=== PATIENT | female | born 1975 ===

== ENCOUNTER 2017-08-25 07:45 | Emergency (ER) | payer MEDICAID, OTHER ==
[2017-08-25 07:48] VITALS: BMI 29.0
[2017-08-25 07:50] VITALS: O2SAT 98
--- NOTE | 2017-08-25 09:46 | RAD ---
HISTORY: R breast pain COMPARISON: No prior. TECHNIQUE: Chest PA and lateral FINDINGS: LUNGS: No active pulmonary disease. PLEURA: No significant pleural effusion identified. No pneumothorax apparent. CARDIOVASCULAR: Normal. OSSEOUS STRUCTURES: No significant abnormalities. VISUALIZED UPPER ABDOMEN: Normal. OTHER FINDINGS: None. IMPRESSION: No active disease.
--- NOTE | 2017-08-25 10:43 | CARD ---
APPROVED REPORT EKG Measurement Heart [id number] <Conclusion> Normal sinus rhythm Normal ECG
[2017-08-25 11:59] VITALS: BP 134/90; RESP 15; TEMP 98.2
--- NOTE | 2017-08-25 12:12 | ED PDOC ---
Upper Extremity Pain/Injury Time Seen by Provider: 08/25/17 08:41 Chief Complaint (Nursing): Upper Extremity Problem/Injury Chief Complaint (Provider): Right breast pain History Per: Patient History/Exam Limitations: no limitations Onset/Duration Of Symptoms: Days (5x) Quality: "Pain" Additional Complaint(s): 42 year old female with a past medical history of diabetes presents to the ED complaining of right breast pain ongoing for 5 days. Denies chest pain, difficulty breathing, fever, cough, weight loss, nipple discharge, palpable mass or potential . Also denies family history of breast cancer. PMD: No Family Provider Past Medical History Reviewed: Historical Data, Nursing Documentation, Vital Signs Vital Signs: Last Vital Signs Temp 98.2 F 08/25/17 11:54 Pulse 61 08/25/17 11:54 Resp 15 08/25/17 11:54 BP 134/90 08/25/17 11:54 Pulse Ox 98 08/25/17 11:54 - Medical History PMH: Diabetes, HTN - Surgical History Other surgeries: vericose vein surgery - Family History Family History: States: No Known Family Hx - Social History Current smoker - smoking cessation education provided: No Alcohol: None Drugs: Denies - Immunization History Hx Tetanus Toxoid Vaccination: Yes (1 YEAR AGO) - Home Medications Home Medications: Ambulatory Orders Medication Instructions Recorded Bacitracin Ointment [Bacitracin] 30 gm TOP BID #1 tube 01/24/14 Cephalexin [Keflex] 500 mg PO QID #28 cap 01/24/14 Ibuprofen [Motrin Tab] 600 mg PO Q6 PRN #15 tab 08/25/17 - Allergies Allergies/Adverse Reactions: Allergies Allergy/AdvReac Type Severity Reaction Status Date / Time No Known Allergies Allergy Verified 08/25/17 07:53 Review of Systems ROS Statement: Except As Marked, All Systems Reviewed And Found Negative Constitutional: Negative for: Fever Cardiovascular: Positive for: Other (breast pain) Respiratory: Negative for: Cough, Other (difficulty breathing) Physical Exam - Reviewed Nursing Documentation Reviewed: Yes Vital Signs Reviewed: Yes - Physical Exam Appears: Positive for: Well, Non-toxic, No Acute Distress Head Exam: Positive for: ATRAUMATIC, NORMAL INSPECTION, NORMOCEPHALIC Skin: Positive for: Normal Color, Warm, Dry Eye Exam: Positive for: EOMI, Normal appearance, PERRL Cardiovascular/Chest: Positive for: Regular Rate, Rhythm, Other (breast exam performed with Gabrielle. No palpable mass, induration, erythema, or skin change). Negative for: Murmur Respiratory: Positive for: Normal Breath Sounds. Negative for: Decreased Breath Sounds, Accessory Muscle Use, Wheezing, Respiratory Distress Gastrointestinal/Abdominal: Positive for: Normal Exam, Bowel Sounds, Soft. Negative for: Tenderness, Guarding, Rebound Extremity: Positive for: Normal ROM. Negative for: Tenderness, Pedal Edema, Deformity Lymphatic: Negative for: Axilla Node Tenderness Neurologic/Psych: Positive for: Alert, Oriented (x3). Negative for: Motor/ Sensory Deficits - ECG ECG Rhythm: Positive for: Normal ST Segment Rate: 64 O2 Sat by Pulse Oximetry: 98 (RA) Pulse Ox Interpretation: Normal Medical Decision Making Medical Decision Making: Time: 844 Initial Impression: Breast Pain Initial Plan: --EKG --ED Urine --ED Urine Dipstick --Chest Two Views --Reevaluation Time: 943 FINDINGS: LUNGS: No active pulmonary disease. PLEURA: No significant pleural effusion identified. No pneumothorax apparent. CARDIOVASCULAR: Normal. OSSEOUS STRUCTURES: No significant abnormalities. VISUALIZED UPPER ABDOMEN: Normal. OTHER FINDINGS: None. IMPRESSION: No active disease. Time: 1149 EKG and Chest Xray are remarkable. Out-patient mastalgia workup. Patient understands the importance of follow-up to rule out possible causes of pain. EKG presents no ST changes and sinus rhythm of 64bpm. US breast needs scheduled as outpt to assure radiologist availability for potential other diagnostic procedures necessary simultaneously. Clinical Impression: Breast Pain Upon provider evaluation patient is medically stable, and requires no further treatment in the ED at this time. Patient will be discharged with Motrin for pain. Counseling was provided and all questions were answered regarding diagnosis and need for follow up with [facility] in [place]. There is agreement to discharge plan. Return if symptoms persist or worsen. Scribe Attestation: Documented by Darlene Velez, acting as a scribe for Rd Coronado III, DO Provider Scribe Attestation: All medical record entries made by the Scribe were at my direction and personally dictated by me. I have reviewed the chart and agree that the record accurately reflects my personal performance of the history, physical exam, medical decision making, and the department course for this patient. I have also personally directed, reviewed, and agree with the discharge instructions and disposition. Disposition - Clinical Impression Clinical Impression: Breast pain - Patient ED Disposition Is Patient to be Admitted: No Counseled Patient/Family Regarding: Studies Performed, Diagnosis, Need For Followup, Rx Given - Disposition Referrals: [facility] [Outside] Disposition: Routine/Home Disposition Time: 11:30 Condition: FAIR Additional Instructions: You will need outpatient testing of your breast pain with possible ultrasound and mammogram. Please followup with clinic to arrange this. Return to ER for any worse or new symptoms. Prescriptions: Ibuprofen [Motrin Tab] 600 mg PO Q6 PRN #15 tab PRN Reason: Pain, Moderate (4-7) Instructions: Common Breast Problems, Mastalgia (DC) Forms: [employer] ([place])
[2017-08-25 12:29] VITALS: PULSE 64
== END 2017-08-25 12:26 | disposition home or self-care (01) ==
LOC: H.ER 07:45
DX: N64.4 Mastodynia (principal); E11.9 Type 2 diabetes mellitus without complications; I10 Essential (primary) hypertension